=== PATIENT | female | born 2000 | race Caucasian/White ===

== ENCOUNTER 2023-12-31 09:56 | Inpatient (IN) | payer OTHER ==
[~2023-12-31] VITALS: Ht 167.6 cm; Wt 113.4 kg
--- NOTE | ~2023-12-31 | OR ---
[address] [address] [place] DATE OF OPERATION: 01/01/2024 SURGEON: Shannan Sherman DO PREOPERATIVE DIAGNOSES: 1. Retained products of conception. 2. Inadequate pain control. 3. OB lacerations. POSTOPERATIVE DIAGNOSES: 1. Retained products of conception. 2. Inadequate pain control. 3. OB lacerations. PROCEDURES PERFORMED: 1. Removal of retained products of conception. 2. Uterine curettage. 3. Repair of OB lacerations. ANESTHESIA: Spinal. ESTIMATED BLOOD LOSS: 50 mL. SPECIMENS: None. DRAINS: Krueger to gravity. COMPLICATIONS: None. INDICATIONS: Ms. Bah is a very pleasant 23-year-old G1, P0 status post spontaneous vaginal delivery. The patient struggled with inadequate pain control despite epidural anesthesia throughout her labor. Delivery was uncomplicated. Following delivery, the patient with significant amount of pain and unable to tolerate pelvic exams. The placenta was delivered, however, a portion of the placental membranes were noted to be PATIENT NAME: GALO BAH OPERATIVE REPORT DATE OF : 01 REPORT #: [id number] PHYSICIAN: SHANNAN SHERMAN (PEARL) PCP: UNASSIGNED DOCTOR REPORT IS CONFIDENTIAL AND NOT TO BE RELEASED WITHOUT AUTHORIZATION [facility] [address] [place] [id number] [address] retained. Attempted manual extraction was performed but unable to be tolerated due to pain. Bleeding was minimal. The patient had extensive OB lacerations that also required repair, however, the patient was unable to tolerate even evaluation of these. Decision was made to proceed to the OR for removal of retained products of conception and repair of the laceration. Risks, benefits, and alternatives were discussed in detail with the patient. The patient understands and wishes to proceed with the procedure. DESCRIPTION OF PROCEDURE: The patient was taken to the OR where time-out was performed to confirm correct patient and correct procedures. Spinal anesthesia was adequately established. The patient was prepped and draped in the dorsal lithotomy position with her feet in Yellofin stirrups. ICPs were on and running. The patient received Ancef 2 g preoperatively as well as 1 g of tranexamic acid. She did receive routine Pitocin and bleeding was moderate. A Krueger catheter was inserted without difficulty despite extensive complex periurethral lacerations. Weighted speculum was placed in vagina and the anterior lip of the cervix was grasped with ring forceps. Trailing membranes were noted emerging from the os and these were gently grasped with ring forceps and expressed intact. Manual exploration of the uterine cavity was performed demonstrating no residual products of conception. A large banjo curette was then selected and the inside of the uterine cavity was very gently probed noting no additional retained products of conception. The uterus was firm, involuted and hemostatic. Attention was then turned to obstetrical laceration repair. The patient has complex bilateral periurethral lacerations. These were repaired in two layers with 2-0 Vicryl and 3-0 Vicryl Rapide with excellent hemostasis with careful attention to proximity of the urethral meatus. A small hymenal was noted, however, no perineal laceration was appreciated. Hymenal was repaired with 3-0 Vicryl Rapide. Shannan Sherman DO JTrenaW/MODL /[id number] Copies: PATIENT NAME: GALO BAH OPERATIVE REPORT DATE OF : 01 REPORT #: [id number] PHYSICIAN: SHANNAN SHERMAN DO (JD) PCP: UNASSIGNED DOCTOR REPORT IS CONFIDENTIAL AND NOT TO BE RELEASED WITHOUT AUTHORIZATION [address] [address] [place] ~ PATIENT NAME: GALO BAH OPERATIVE REPORT DATE OF : 01 REPORT #: [id number] PHYSICIAN: SHERMAN,SHANNAN (PEARL) DO PCP: UNASSIGNED DOCTOR REPORT IS CONFIDENTIAL AND NOT TO BE RELEASED WITHOUT AUTHORIZATION
[2023-12-31] MEDS ORDERED: MAGNESIUM HYDROXIDE/AL HYDROX 30 ML CUP PO PRN (10:30)
[2023-12-31] MEDS ORDERED: OXYTOCIN/DEXTROSE 5% 20 UNITS/100 ML BAG IV SCH (10:30)
[2023-12-31] MEDS ORDERED: CALCIUM CARBONATE 500 MG CHEW PO PRN (10:30)
[2023-12-31 10:56] LABS: HEMATOCRIT 34.4 % (35.0-50.0); HEMOGLOBIN 11.8 g/dL (12.0-18.0); MCH 31.2 (27-36); MCHC 34.3 g/dl (30-36); MCV 90.9 fl (81-99); RBC 3.78 M/ul (4.3-5.7); RDW 14.3 (10.5-15.0)
[2023-12-31 11:02] VITALS: BP 117/83
[2023-12-31] MEDS ORDERED: LIDOCAINE HCL 2% 5 ML SDV ONE (11:41)
[2023-12-31 11:42] LABS: ABO A; ANTIBODY SCREEN NEGATIVE; RH POSITIVE
[2023-12-31] MEDS ORDERED: BUPIVACAINE HCL 0.25% 10 ML SDV INJ ONE (11:42)
[2023-12-31] MEDS ORDERED: ROPIVACAINE 0.2% 200 ML BAG ONE (11:42)
[2023-12-31 12:18] LABS: AMPHETAMINES, URINE NEGATIVE (NEGATIVE); BARBITURATES, URINE NEGATIVE (NEGATIVE); BENZODIAZEPINE, URINE NEGATIVE (NEGATIVE); BUPRENORPHINE, URINE NEGATIVE (NEGATIVE); CANNABINOID, URINE NEGATIVE (NEGATIVE); COCAINE, URINE NEGATIVE (NEGATIVE); ECSTASY, URINE NEGATIVE (NEGATIVE); FENTANYL, URINE NEGATIVE (NEGATIVE); METHADONE, URINE NEGATIVE (NEGATIVE); OPIATES, URINE NEGATIVE (NEGATIVE); OXYCODONE, URINE NEGATIVE (NEGATIVE); PHENCYCLIDINE, URINE NEGATIVE (NEGATIVE)
[2023-12-31] MEDS ORDERED: dexmedeTOMIDine HCl 200 MCG/2 ML VIAL ONE ×2 (12:18→15:34)
[2023-12-31] MEDS ORDERED: ROPIVACAINE 0.2% 200 ML BAG EPIDURAL SCH ×2 (12:45)
[2023-12-31] MEDS ORDERED: LACTATED RINGER'S 2,000 ML IV ONE (12:45)
[2023-12-31] MEDS ORDERED: LACTATED RINGER'S 500 ML IV PRN (12:45)
[2023-12-31] MEDS ORDERED: ePHEDrine sulfate 5 MG/ML SYRINGE IV PRN (12:45)
[2023-12-31] MEDS ORDERED: SODIUM CHLORIDE 0.9% 20 ML IV ONE (15:34)
[2023-12-31] MEDS ORDERED: fentaNYL citrate 100 MCG/2 ML VIAL ONE (16:12)
--- NOTE | 2023-12-31 16:56 | PR ---
[facility] [address], [place] [address] Signed Progress Notes IP Datetime Report Generated by CPN: 12/31/2023 16:56 PROGRESS NOTES: [id number] Impression: Normal Progression of Labor; Reassuring Heart Rate Procedures: Artificial ROM; Sterile Vag Exam Plan: Continue Present Management; Anticipate Vaginal Delivery Informed Consent Obtain: Vaginal Delivery VITAL SIGNS: [id number] Vital Signs: Reviewed; Within Normal Limits EXAM: [id number] Dilatation: 9.0 Effacement: 100 Station: -1 Contractions: q 2-3 min MEMBRANES: [id number] Comments: Pt seen and examined. Doing well. Rebolused by anesthesia and more comfortable. Large bulging bag on SVE and recommend AROM. Pt agrees. AROM easily performed for moderate amount clear fluid. Anticipate . FETUS A: [id number] FHR Baseline: 125 Variability: Moderate 6-25bpm Accelerations: 15X15 Decelerations: None FHR Category: Category I Presentation: Vertex Comments on Fetus A: no evidence of metabolic acidosis FETUS B: [id number] Signing Physician: Shannan Sherman DO Copies: ~ *Electronically Signed* 12/31/23 7519 SHANNAN SHERMAN (PEARL) DO PATIENT NAME: GALO REEVES PROGRESS NOTE DATE OF : 01 PHYSICIAN: SHANNAN SHERMAN) DO RPT #: [id number] REPORT IS CONFIDENTIAL AND NOT TO BE RELEASED WITHOUT AUTHORIZATION
--- NOTE | 2023-12-31 20:14 | PR ---
[facility] [address] [place], [place] [address] Signed Progress Notes IP Datetime Report Generated by STEFANY: 12/31/2023 20:14 PROGRESS NOTES: [id number] Impression: Normal Progression of Labor; Reassuring Heart Rate Procedures: Intrauterine Pressure Catheter; Sterile Vag Exam Plan: Continue Present Management Other Plans: Consider augmentation if indicated Informed Consent Obtain: Vaginal Delivery VITAL SIGNS: [id number] Vital Signs: Reviewed; Within Normal Limits EXAM: [id number] Dilatation: 9.0 Effacement: 100 Station: -1 Contractions: q 2 min MEMBRANES: [id number] Comments: Pt seen and examined. Pt reports feeling urge to push despite not being completely dilated. Difficulty tolerating pelvic exams despite epidural. Pt still 9cm. Pt feels "that I can't do this anymore" and is considering primary C/S. Reviewed progress, pelvic exam, and FHT. Recommend continued trial of labor. Discussed optimization of labor w/ addressing "the three P's: burden, passage, and passenger." Recommended IUPC for accurately assess contraction adequacy and augment w/ pitocin if needed. Reviewed EFW and position (MEHRAN). Reviewed adequate pelvis. Pt agrees to IUPC which was placed w/out difficulty. Contractions appear adequate at this time. Anticipate . All questions answered. FETUS A: [id number] FHR Baseline: 125 Variability: Moderate 6-25bpm Accelerations: 15X15 Decelerations: None FHR Category: Category I Presentation: Vertex Comments on Fetus A: no evidence of metabolic acidosis FETUS B: [id number] Signing Physician: Shannan Washington DO *Electronically Signed* 12/31/232013 SHANNAN WASHINGTON) DO PATIENT NAME: GALO REEVES PROGRESS NOTE DATE OF : 01 PHYSICIAN: SHANNAN WASHINGTON DO (JD) RPT #: [id number] REPORT IS CONFIDENTIAL AND NOT TO BE RELEASED WITHOUT AUTHORIZATION
[2023-12-31] MEDS ORDERED: OXYTOCIN/0.9 % SODIUM CHLORIDE 500 ML IV SCH (20:45)
--- NOTE | 2023-12-31 21:37 | PR ---
[facility] [address] [place], [place] [address] Signed Progress Notes IP Datetime Report Generated by CPN: 12/31/2023 21:37 PROGRESS NOTES: [id number] Impression: Normal Progression of Labor; Reassuring Heart Rate Procedures: Sterile Vag Exam Plan: Continue Present Management; Anticipate Vaginal Delivery Other Plans: Consider augmentation if indicated Informed Consent Obtain: Vaginal Delivery VITAL SIGNS: [id number] Vital Signs: Reviewed; Within Normal Limits EXAM: [id number] Dilatation: 10.0 Effacement: 100 Station: 0 Contractions: q 1-3 min MEMBRANES: [id number] Comments: Pt seen and examined. Doing well. Feeling more pressure and spontanously pushing w/ contractions. On exam, cervix complete. Pt with difficulty w/ cervix exams / pushing. Will continue coaching w/ RNs and discuss options for pushing positions / preferences. Pt not interested in laboring down FETUS A: [id number] FHR Baseline: 125 Variability: Moderate 6-25bpm Accelerations: 15X15 Decelerations: Variable FHR Category: Category II Presentation: Vertex Comments on Fetus A: no evidence of metabolic acidosis FETUS B: [id number] Signing Physician: Shannan Sherman DO Copies: ~ *Electronically Signed* 12/31/23 1584 SHANNAN SHERMAN (PEARL) DO PATIENT NAME: GALO REEVES PROGRESS NOTE DATE OF : 01 PHYSICIAN: SHANNAN SHERMAN (JD) DO RPT #: [id number] REPORT IS CONFIDENTIAL AND NOT TO BE RELEASED WITHOUT AUTHORIZATION
[2023-12-31] MEDS ORDERED: HYDROmorphone HCL 1 MG/ML SYR IV ONE (23:15)
[2023-12-31] MEDS ORDERED: TRANEXAMIC ACID IN NACL,ISO-OS 100 ML IV ONE (23:42)
[2023-12-31] MEDS ORDERED: CEFAZOLIN SODIUM 2 GM/20 ML SYR ONE (23:43)
[2023-12-31] MEDS ORDERED: CEFAZOLIN SODIUM 2 GM/20 ML SYR IV ONE (23:45)
[2023-12-31] MEDS ORDERED: TRANEXAMIC ACID IN NACL,ISO-OS 1,000 MG/100 ML PIGGYBACK IV ONE (23:45)
[2024-01-01] MEDS ORDERED: LIDOCAINE HCL 2% 5 ML SDV ONE (00:10)
[2024-01-01] MEDS ORDERED: TRANEXAMIC ACID IN NACL,ISO-OS 0 ML IV ONE (00:11)
[2024-01-01] MEDS ORDERED: MIDAZOLAM HCL 2 MG/2 ML VIAL ONE (00:11)
[2024-01-01] MEDS ORDERED: SENNOSIDES/DOCUSATE 1 EA TAB PO SCH (01:22)
[2024-01-01] MEDS ORDERED: BENZOCAINE 60 ML AEROSOL TOP PRN (01:30)
[2024-01-01] MEDS ORDERED: OXYTOCIN/0.9 % SODIUM CHLORIDE 500 ML IV SCH (01:30)
[2024-01-01] MEDS ORDERED: MAGNESIUM HYDROXIDE 30 ML UDC PO PRN (01:30)
[2024-01-01] MEDS ORDERED: MAGNESIUM HYDROXIDE/AL HYDROX 30 ML CUP PO PRN (01:30)
[2024-01-01] MEDS ORDERED: IBUPROFEN 600 MG TAB PO PRN (01:30)
[2024-01-01] MEDS ORDERED: OXYCODONE HCL 5 MG TAB PO PRN (01:30)
[2024-01-01] MEDS ORDERED: HYDROCORTISONE ACETATE 25 MG SUPP PR PRN (01:30)
[2024-01-01] MEDS ORDERED: OXYCODONE/APAP 5/325 TAB PO PRN (01:30)
[2024-01-01] MEDS ORDERED: WITCH HAZEL/GLYCERIN 1 EA PAD TOP PRN (01:30)
[2024-01-01] MEDS ORDERED: HYDROCODONE/ACETA 5/325 TAB PO PRN (01:30)
[2024-01-01] MEDS ORDERED: LIDOCAINE 2% VISCOUS 6 ML SYR TOP ONE ×2 (01:30)
[2024-01-01] MEDS ORDERED: ACETAMINOPHEN 325 MG TAB PO PRN (01:30)
[2024-01-01] MEDS ORDERED: CALCIUM CARBONATE 500 MG CHEW PO PRN (01:30)
--- NOTE | 2024-01-01 01:49 | NUR ---
01/01/24 0149 Sunitha Mckeon 0118-PT ARRIVED TO PACU AWAKE, BUT DROWSY, ON RA. RR EVENA ND UNALBORED. SATS STABLE ABOVE 95% ON RA. PT DENIES PAIN OR NAUSEA. 0123-PT EDUCATED ON PAIN CONTROL MEASURES (NON-PHARM AND PHARMACOLOGICAL). PT ALSO INQUIRING ABOUT SPINAL RESOLUTION AND PROVIDED EDUCATION. 0125-FUNDAL CHECK COMPLETED. NOTED TO BE FIRM, MIDLINE, AND LOCHIA APPEARS RUBRA IN COLOR AND LIGHT IN AMT. 0135-PT CONT TO DENY PAIN OR NAUSEA WHEN ASKED. VS REMAIN STABLE. RR EVEN AND UNALBORED. SATS REMAIN STABLE ON RA AT 95% OR GREATER.
[2024-01-01 02:15] VITALS: BP 116/73
--- NOTE | 2024-01-01 12:19 | PR ---
[facility] [facility] [address] [facility] [place], [place] [address] Signed PP Progress Notes Datetime Report Generated by CPN: 01/01/2024 12:19 SUBJECTIVE: [id number] Pain: Within Normal Limits Flatus: Yes Bowel Movement: No Vital Signs: [id number] Vital Signs: Reviewed; Within Normal Limits Cardiovascular: Normal Respiratory: Normal Abdomen/Uterus: Normal Lochia: Normal Vulva/Perineum: Not Done Breasts: Not Done CVA Tenderness: Normal Extremities: Normal Incision: Not Applicable Progress: Normal Exam Comments: Fundus firm U-2 nontender IMPRESSION/PLAN/PROCEDURES: [id number] Impression: Normal Progression Plan: Continue Present Management Progress Notes: Pt seen and examined. Doing well. Tolerating full diet. Has not ambulated and paul cath in place due to vulvar edema. No concerns. well. Continue care Signing Physician: Shannan Sherman DO Copies: ~ *Electronically Signed* 01/01/24 121 SHANNAN SHERMAN (PEARL) DO PATIENT NAME: LALAGALO PROGRESS NOTE DATE OF : 01 PHYSICIAN: SHANNAN SHERMAN (PEARL) DO RPT #: [id number] REPORT IS CONFIDENTIAL AND NOT TO BE RELEASED WITHOUT AUTHORIZATION
[2024-01-02 06:27] LABS: HEMATOCRIT 30.1 % (35.0-50.0); HEMOGLOBIN 10.1 g/dL (12.0-18.0)
[2024-01-02 06:31] LABS: MCHC 33.6 g/dl (30-36); MCV 92.1 fl (81-99); RBC 3.27 M/ul (4.3-5.7); RDW 14.4 (10.5-15.0)
--- NOTE | 2024-01-02 17:41 | PR ---
[facility] [address] [place], [place] [address] Signed PP Progress Notes Datetime Report Generated by CPN: 01/02/2024 17:41 SUBJECTIVE: [id number] Pain: Within Normal Limits Nausea/Vomiting: Denies Flatus: Yes Bowel Movement: No Vital Signs: [id number] Vital Signs: Reviewed; Within Normal Limits Cardiovascular: Normal Respiratory: Normal Abdomen/Uterus: Normal Lochia: Normal Vulva/Perineum: Not Done Breasts: Not Done CVA Tenderness: Normal Extremities: Normal Incision: Not Applicable Progress: Normal Exam Comments: Fundus firm U-2 nontender IMPRESSION/PLAN/PROCEDURES: [id number] Impression: Normal Progression Plan: Continue Present Management Progress Notes: Pt seen and examined. Doing better. Pain still significant but improving. Ambulating, voiding, and tolerating full diet. Lochia minimal. with some support w/ latching. w/ elevated bilirubin and staying overnight. Reviewed complicated course w/ delivery just prior to midnight but procedure in OR for retained products of conception and complex periurethral laceration. Recommended patient remain inpatient overnight for continued recovery. Anticipate d/c home in AM. All questions answered. Signing Physician: Shannan Sherman DO Copies: ~ *Electronically Signed* 01/02/24 7686 SHANNAN SHERMAN (PEARL) DO PATIENT NAME: GALO REEVES PROGRESS NOTE DATE OF : 01 PHYSICIAN: SHANNAN SHERMAN (JD) DO RPT #: [id number] REPORT IS CONFIDENTIAL AND NOT TO BE RELEASED WITHOUT AUTHORIZATION
--- NOTE | 2024-01-03 09:02 | PR ---
[facility] [address] [place], [place] [address] Signed PP Progress Notes Datetime Report Generated by CPN: 01/03/2024 09:02 SUBJECTIVE: [id number] Pain: Within Normal Limits Nausea/Vomiting: Denies Flatus: Yes Bowel Movement: Yes Vital Signs: [id number] Vital Signs: Reviewed; Within Normal Limits Cardiovascular: Normal Respiratory: Normal Abdomen/Uterus: Normal Lochia: Normal Vulva/Perineum: Not Done Breasts: Not Done CVA Tenderness: Normal Extremities: Normal Incision: Not Applicable Progress: Normal Exam Comments: Fundus firm U-2 nontender IMPRESSION/PLAN/PROCEDURES: [id number] Impression: Normal Progression Plan: Discharge Progress Notes: Pt seen and examined. Doing well. Ambulating, voiding, and tolerating full diet. No fevers/chills or other concerns. w/ jaundic and receiving phototherapy. Mother desires d/c to border status. Reviewed course, discharge medications, and plans for pp contraception (vasectomy vs OCPs / Condoms). All questions answered. Signing Physician: Shannan Sherman DO Copies: ~ *Electronically Signed* 01/03/249[address] SHANNAN SHERMAN (PEARL) DO PATIENT NAME: GALO REEVES PROGRESS NOTE DATE OF : 01 PHYSICIAN: SHANNAN SHERMAN (JD) DO RPT #: [id number] REPORT IS CONFIDENTIAL AND NOT TO BE RELEASED WITHOUT AUTHORIZATION
== END 2024-01-03 17:29 | disposition home or self-care (01) | DRG 797 ==
LOC: FBCO 09:56 → FBC 10:00
PROVIDERS: ADMIT Obstetrics & Gynecology; ATTEND Obstetrics & Gynecology
PROC: 10E0XZZ Delivery of Products of Conception, External Approach (ICD-10-PCS; principal; 2023-12-31)
PROC: 10907ZC Drainage of Amniotic Fluid, Therapeutic from Products of Conception, Via Natural or Artificial Opening (ICD-10-PCS; 2023-12-31)
PROC: 0UQMXZZ Repair Vulva, External Approach (ICD-10-PCS; 2023-12-31)
PROC: 10H07YZ Insertion of Other Device into Products of Conception, Via Natural or Artificial Opening (ICD-10-PCS; 2023-12-31)
PROC: 10D17ZZ Extraction of Products of Conception, Retained, Via Natural or Artificial Opening (ICD-10-PCS; 2024-01-01)
PROC: 0UQMXZZ Repair Vulva, External Approach (ICD-10-PCS; 2024-01-01)
DX: O99.344 Other mental disorders complicating childbirth (principal); O99.354 Diseases of the nervous system complicating childbirth; Z37.0 Single live birth; O69.81X0 Labor and delivery complicated by cord around neck, without compression, not applicable or unspecified; Z3A.39 39 weeks gestation of pregnancy; O73.1 Retained portions of placenta and membranes, without hemorrhage; O70.9 Perineal laceration during delivery, unspecified; O71.89 Other specified obstetric trauma; G40.909 Epilepsy, unspecified, not intractable, without status epilepticus; F32.A Depression, unspecified; F41.9 Anxiety disorder, unspecified
CPT/HCPCS: 01960; 01965; 36415; 80307; 82247; 85027; 86850; 86900; 86901; A9270; J0690; J1170; J2001; J2250; J2795; J3010; J7121